=== PATIENT | female | born 1990 | race Caucasian/White ===

== ENCOUNTER 2016-09-08 11:09 | Emergency (ER) | payer MEDICAID ==
[2015-05-09 06:10] VITALS: BMI 34.8
[~2016-09-08 11:09] MED LIST: ADIPEX-P37.5 MG PO; DEMEROL50 MG PO; IBUPROFEN600 MG PO; PHENERGAN25 M1 PO; PHENERGAN25 MG RC; VISTARIL50 MG PO; VIVA DHA PRENAT1 CAP PO; ZOFRAN ODT4 MG/UDTAB PO
[2016-09-08 12:15] LABS: EOSINOPHILS 1.5 % (0-7); HEMATOCRIT 38.5 % (36.0-48.0); IMMATURE GRANULOCYTES 0.1 % (0-5); MCH 27.6 pg (26.0-34.0); MCHC 33.8 g/dL (31.0-37.0); MCV 81.7 fL (80.0-100.0); MEAN PLATELET VOLUME 9.6 fL (7.4-10.4); MONOCYTES 8.2 % (2-11); NEUTROPHILS 60.2 % (40-80); PLATELET COUNT 271 10x3/uL (130-400); RBC 4.71 10x6/uL (4.00-5.40); RDW 13.1 % (11.5-14.5); WBC 6.7 10x3/uL (4.8-10.8)
[2016-09-08 12:29] LABS: HCG SERUM NEGATIVE (NEGATIVE)
[2016-09-08 12:48] LABS: ALBUMIN 4.1 g/dL (3.4-5.0); ALKALINE PHOSPHATASE 84 U/L (46-116); ALT (SGPT) 14 U/L (10-68); AMYLASE - SERUM 46 U/L (25-115); BILIRUBIN - TOTAL 0.34 mg/dL (0.2-1.3); CALC OSMOLALITY 275 mosm/kg (275-300); CALCIUM 9.4 mg/dL (8.5-10.1); CARBON DIOXIDE 24.7 mmol/L (21.0-32.0); CHLORIDE - SERUM 104 mmol/L (98-107); CREATININE - SERUM 0.6 mg/dL (0.6-1.3); GLUCOSE 78 mg/dL (74-106); LIPASE 105 U/L (73-393); POTASSIUM - SERUM 4.1 mmol/L (3.5-5.1); PROTEIN - SERUM 8.3 g/dL (6.4-8.2); SODIUM 139 mmol/L (136-145); UREA NITROGEN 10 mg/dL (7-18); eGFR NON AFRICAN AMERICAN > 90 mL/min (90-120)
== END 2016-09-08 15:25 | disposition left against medical advice (07) ==
LOC: D.ER 11:09
PROVIDERS: Family Medicine
DX: R10.9 Unspecified abdominal pain (principal)

== ENCOUNTER 2016-11-22 23:47 | Emergency (ER) | payer MEDICAID ==
[2015-05-09 06:10] VITALS: BMI 34.8
[2016-11-23 06:05] LABS: BASOPHILS 1.1 % (0.0-2.0); EOSINOPHILS 2.5 % (0-7); HEMATOCRIT 34.6 % (36.0-48.0); HEMOGLOBIN 11.3 g/dL (12-16); IMMATURE GRANULOCYTES 0.4 % (0-5); LYMPHOCYTES 29.6 % (15-50); MCH 26.7 pg (26.0-34.0); MCHC 32.7 g/dL (31.0-37.0); MCV 81.8 fL (80.0-100.0); MEAN PLATELET VOLUME 9.2 fL (7.4-10.4); MONOCYTES 8.3 % (2-11); NEUTROPHILS 58.1 % (40-80); PLATELET COUNT 259 10x3/uL (130-400); RBC 4.23 10x6/uL (4.00-5.40); RDW 12.5 % (11.5-14.5); WBC 5.5 10x3/uL (4.8-10.8)
[2016-11-23 06:11] LABS: APPEARANCE CLEAR (CLEAR); COLOR YELLOW (YELLOW); GLUCOSE NEGATIVE (NEGATIVE); KETONE NEGATIVE (NEGATIVE); LEUKOCYTE ESTERASE TRACE (NEGATIVE); NITRITE NEGATIVE (NEGATIVE); PROTEIN NEGATIVE (NEGATIVE); SPECIFIC GRAVITY 1.015 (1.005-1.020); UROBILINOGEN NORMAL (NORMAL)
[2016-11-23 06:12] LABS: BILIRUBIN NEGATIVE (NEGATIVE); RED CELLS - URINE OCC /hpf (0-5); WHITE CELLS - URINE OCC /hpf (0-5)
[2016-11-23 06:13] LABS: BACTERIA FEW /hpf (NONE SEEN); EPITHELIAL CELLS 0-5 /hpf (0-5); MUCUS <1+ /lpf (NONE SEEN)
[2016-11-23 06:17] LABS: CALC OSMOLALITY 276 mosm/kg (275-300); CALCIUM 8.5 mg/dL (8.5-10.1); CARBON DIOXIDE 26.9 mmol/L (21.0-32.0); CHLORIDE - SERUM 104 mmol/L (98-107); CREATININE - SERUM 0.6 mg/dL (0.6-1.3); GLUCOSE 100 mg/dL (74-106); POTASSIUM - SERUM 3.9 mmol/L (3.5-5.1); SODIUM 139 mmol/L (136-145); UREA NITROGEN 10 mg/dL (7-18); eGFR NON AFRICAN AMERICAN > 90 mL/min (90-120)
== END 2016-11-23 06:43 | disposition home or self-care (01) ==
LOC: D.ER 23:47
PROVIDERS: Family Medicine
DX: R51 Headache (principal); E87.6 Hypokalemia; E87.1 Hypo-osmolality and hyponatremia

== ENCOUNTER 2017-03-23 13:31 | Emergency (ER) | payer MEDICAID ==
[2015-05-09 06:10] VITALS: BMI 34.8
== END 2017-03-23 16:44 | disposition home or self-care (01) ==
LOC: D.ER 13:31
DX: R51 Headache (principal); R53.1 Weakness

== ENCOUNTER 2018-07-21 05:20 | Day surgery (SDC) | payer MEDICAID ==
[2018-07-16 11:48] LABS: BASOPHILS 0.7 % (0-2); EOSINOPHILS 1.5 % (0-7); HEMATOCRIT 37.2 % (36.0-48.0); HEMOGLOBIN 12.6 g/dL (12-16); IMMATURE GRANULOCYTES 0.3 % (0-5); MCH 28.3 pg (26.0-34.0); MCHC 33.9 g/dL (31.0-37.0); MCV 83.4 fL (80.0-100.0); NEUTROPHILS 66.5 % (40-80); PLATELET COUNT 289 10x3/uL (130-400); RBC 4.46 10x6/uL (4.00-5.40); RDW 12.9 % (11.5-14.5); WBC 7.3 10x3/uL (4.8-10.8)
[2018-07-16 12:04] LABS: CALC OSMOLALITY 274 mosm/kg (275-300); CALCIUM 8.6 mg/dL (8.5-10.1); CHLORIDE - SERUM 104 mmol/L (98-107); CREATININE - SERUM 0.7 mg/dL (0.6-1.3); GLUCOSE 81 mg/dL (74-106); POTASSIUM - SERUM 3.9 mmol/L (3.5-5.1); SODIUM 139 mmol/L (136-145); UREA NITROGEN 7 mg/dL (7-18); eGFR NON AFRICAN AMERICAN > 90 mL/min (90-120)
[~2018-07-21] VITALS: Ht 157.5 cm; Wt 103.6 kg
[~2018-07-21 05:20] MED LIST changes: +IMITREX50 MG PO
[2018-07-21 05:57] VITALS: BP 120/78; BMI 41.6
[2018-07-21 18:11] VITALS: BP 119/58; Ht 157.5 cm; Wt 103.6 kg
[2018-07-21 19:18] VITALS: BP 123/65
[2018-07-21 23:21] VITALS: BP 100/59
[2018-07-22 07:23] VITALS: BP 97/50
[2018-07-23] MEDS ORDERED: MACROBID100 MG PO (15:30)
== END 2018-07-22 12:52 | disposition home or self-care (01) ==
LOC: D.OPS 05:20 → D.PAN 07:30 → D.OPS 07:30 → D.PAN 09:00 → D.LD 15:25 → D.OPS 07-22 12:52
PROVIDERS: Obstetrics & Gynecology
DX: N80.0 Endometriosis of uterus (principal); N39.3 Stress incontinence (female) (male); N93.9 Abnormal uterine and vaginal bleeding, unspecified

== ENCOUNTER 2018-07-23 11:58 | Emergency (ER) | payer MEDICAID ==
[~2018-07-23] VITALS: Ht 157.5 cm; Wt 103.6 kg
[2018-07-23 12:20] VITALS: Ht 157.5 cm; Wt 103.6 kg
[2018-07-23 14:15] LABS: APPEARANCE HAZY (CLEAR); BILIRUBIN NEGATIVE (NEGATIVE); COLOR YELLOW (YELLOW); GLUCOSE NEGATIVE (NEGATIVE); KETONE NEGATIVE (NEGATIVE); NITRITE NEGATIVE (NEGATIVE); PROTEIN 1+ mg/dL (NEGATIVE); SPECIFIC GRAVITY 1.015 (1.005-1.020); UROBILINOGEN NORMAL (NORMAL)
[2018-07-23 14:19] LABS: RED CELLS - URINE >50 /hpf (0-5); WHITE CELLS - URINE 0-5 /hpf (0-5)
[2018-07-23 14:20] LABS: BACTERIA FEW /hpf (NONE SEEN); EPITHELIAL CELLS OCC /hpf (0-5); MUCUS >1+ /lpf (NONE SEEN)
[2018-07-23] MEDS ORDERED: MACROBID100 MG PO (15:30)
[2018-07-23 17:06] VITALS: BP 128/80
== END 2018-07-23 17:06 | disposition home or self-care (01) ==
LOC: D.ER 11:58
PROVIDERS: Emergency Medicine
DX: T83.098A Other mechanical complication of other urinary catheter, initial encounter (principal); N39.0 Urinary tract infection, site not specified